=== PATIENT | male | born 1965 | race Two or more races ===

== ENCOUNTER 2025-07-06 06:27 | Day surgery (SDC) | payer BC ==
[~2025-07-06] VITALS: Ht 170.2 cm; Wt 114.0 kg
[~2025-07-06 06:27] MED LIST: FLUTICASONE-SA1 EAC4 INH; LACTATED RINGER'S 1,000 ML IV SCH; METFORMIN HCL1000 M1 PO; Ropivacaine HCl 20 MG/10 ML AMP ONE; SAXAGLIPTIN HCL5 MG PO; VENTOLIN HFA18 GM INH
[2025-07-06] MEDS ORDERED: GABAPENTIN 600 MG TAB PO SCH (07:00)
[2025-07-06] MEDS ORDERED: IBLOOD GLUCOSE TEST STRIP 1 EA TEST VI PRN ×2 (07:00→10:15)
[2025-07-06] MEDS ORDERED: PANTOPRAZOLE SODIUM 40 MG TABEC PO SCH (07:00)
[2025-07-06] MEDS ORDERED: CEFAZOLIN SODIUM 2 GM in SODIUM CHLORIDE 0.9% 100 ML IV SCH ×2 (07:00→17:00)
[2025-07-06] MEDS ORDERED: OXYCODONE HCL 5 MG TAB PO SCH (07:00)
[2025-07-06] MEDS ORDERED: INTRA-ARTICULAR ANALGESIC INJECTION XX SCH (07:00)
[2025-07-06] MEDS ORDERED: TRANEXAMIC ACID IN NACL,ISO-OS 1,000 MG/100 ML PIGGYBACK IV SCH ×2 (07:00→11:00)
[2025-07-06] MEDS ORDERED: LIDOCAINE HCL 1% 5 ML SDV INJ ONE (07:00)
[2025-07-06] MEDS ORDERED: ROPIVACAINE IN 0.9% SOD CHL/PF 545 ML ELS.PMP.HR IRRIGATION SCH (07:00)
[2025-07-06 07:03] VITALS: BP 127/65
[2025-07-06] MEDS ORDERED: Ropivacaine HCl 0.5% 30 ML VIAL ONE (07:16)
[2025-07-06] MEDS ORDERED: DEXAMETHASONE SOD PHOS 4 MG/ML VIAL ONE (07:16)
[2025-07-06] MEDS ORDERED: MIDAZOLAM HCL 2 MG/2 ML VIAL ONE (07:16)
[2025-07-06] MEDS ORDERED: SODIUM CHLORIDE 0.9% 20 ML IV ONE (07:16)
[2025-07-06] MEDS ORDERED: LIDOCAINE HCL 2% 5 ML SDV ONE ×2 (07:17→09:23)
[2025-07-06] MEDS ORDERED: ALBUTEROL/IPRATROPIUM 3 ML NEB ONE (08:27)
[2025-07-06] MEDS ORDERED: ALBUTEROL/IPRATROPIUM 3 ML NEB INH ONE (08:30)
[2025-07-06] MEDS ORDERED: OXYCODONE HCL 5 MG TAB PO PRN (09:15)
[2025-07-06] MEDS ORDERED: KETOROLAC TROMETHAMINE 30 MG/ML VIAL IV PRN (09:15)
[2025-07-06] MEDS ORDERED: fentaNYL citrate 100 MCG/2 ML VIAL ONE (09:47)
[2025-07-06] MEDS ORDERED: PHENYLEPHRINE HCL IN 0.9% NACL 1 MG/10 ML SYR ONE (09:54)
[2025-07-06] MEDS ORDERED: GLYCOPYRROLATE 1 MG/5 ML MDV ONE (09:54)
[2025-07-06] MEDS ORDERED: TRANEXAMIC ACID 1,000 MG/10 ML AMP ONE (09:57)
[2025-07-06] MEDS ORDERED: NALOXONE HCL 0.4 MG SYR IV PRN (10:15)
[2025-07-06] MEDS ORDERED: fentaNYL citrate 50 MCG/ML SDV IV PRN (10:15)
[2025-07-06] MEDS ORDERED: HYDROmorphone HCL 1 MG/ML SYR IV PRN (10:15)
[2025-07-06] MEDS ORDERED: ACETAMINOPHEN 1,000 MG/100 ML VIAL ONE (10:29)
[2025-07-06] MEDS ORDERED: KETOROLAC TROMETHAMINE 30 MG/ML VIAL ONE (11:16)
[2025-07-06] MEDS ORDERED: ASPIRIN325 MG PO (11:23)
[2025-07-06] MEDS ORDERED: GABAPENTIN300 MG PO (11:23)
[2025-07-06] MEDS ORDERED: DICLOFENAC SODI75 MG PO (11:23)
[2025-07-06] MEDS ORDERED: SENNA LAX8.6 MG PO (11:23)
[2025-07-06] MEDS ORDERED: OXYCODONE HCL5 M1 PO (11:23)
[2025-07-06] MEDS ORDERED: CEFUROXIME250 MG PO (11:23)
[2025-07-06] MEDS ORDERED: ACETAMINOPHEN500 MG PO (11:23)
[2025-07-06 12:08] VITALS: BP 118/74
--- NOTE | 2025-07-06 12:18 | NUR ---
1200- PT RETURNS TO ROOM4 FROM PACU. PT FAMILY IS AT BEDSIDE. BEDSIDE REPORT RECIEVED FROM AILEEN DEMPSEY. PT REPORTS PAIN IS A 2/10 AND NO NAUSEA. SURGICAL SITE ASSESSED WITH SOME RED DRAINAGE NOTED. PT IS SIPPING ON COFFEE AND EATING AN APPLE SAUCE. CALL LIGHT IN REACH. LR INFUSING. BED IS LOCKED IN THE LOWEST POSITON. CRITERIA DISCUSSED AND PT IS UNDERSTANDING.
--- NOTE | 2025-07-06 12:53 | OR ---
[facility] [address], [place] [address] Signed DATE OF OPERATION: 07/06/2025 SURGEON: Krissy Palomino MD PREOPERATIVE DIAGNOSIS: Severe degenerative joint disease, left knee. POSTOPERATIVE DIAGNOSIS: Severe degenerative joint disease, left knee. PROCEDURE PERFORMED: Left total knee arthroplasty with Aamir. JOURNEYMAN MEAT CUTTER: None. ANESTHESIA: Spinal. BLOOD LOSS: 175 mL. IMPLANTS: Odin Triathlon size 6 femur, 5 tibia, 10 mm polyethylene and a 38 mm patella. BRIEF HISTORY: Cecilia is a 60-year-old gentleman with progressive worsening of osteoarthritis that failed nonoperative treatment. Risks and benefits of operative treatment were discussed with him and he elected to proceed. DESCRIPTION OF PROCEDURE: Once consent was obtained, he was taken to the operating room. After adequate anesthesia he was placed on the operating room table. A hip bump was placed. The leg was prepped and draped in a standard sterile fashion. The knee was approached through a standard anterior midline incision, carried through skin, subcutaneous tissue and skin flaps were developed medially and laterally. A low mid vastus arthrotomy was performed. The infrapatellar fat pad was excised. The MCL was elevated as a sleeve around the posteromedial corner. Anterior horns of the menisci were transected. The ACL was transected. PCL was found to be intact. The navigation computer arrays were then placed in the distal femur and proximal tibia. The leg was then registered with the Electronically Signed By: KRISSY PALOMINO MD 07/06/25 1253 PATIENT NAME: CECILIA MAHONEY OPERATIVE REPORT DATE OF : 65 REPORT #: [id number] PHYSICIAN: KRISSY PALOMINO MD PCP: NO PRIMARY CARE PHYSICIAN REPORT IS CONFIDENTIAL AND NOT TO BE RELEASED WITHOUT AUTHORIZATION [facility] [address], [place] [address] Signed computer followed by the fine anatomic points of the knee. The varus and valgus poses were undertaken and slight adjustments were made to the position of the prosthesis. The distal femoral cut was then made. The posterior cuts were made. Next, however, the machine stopped working with only one of the posterior cuts made. The machine was rebooted and still did not work. All of the rescue techniques were unable to get it to work. We then switched to manual instrumentation. The four-in-one block was then placed on the distal femur and aligned with the anterior cortex of the femur. The anterior, posterior, and chamfer cuts were then made. The bone was removed as were any remaining osteophytes. The extramedullary guide was then aligned for the tibia and set to take 5 mm off the most involved medial position. The guide was aligned with the anterior ridge of the tibia. The tibial cut was then made with care taken to protect the patellar tendon and MCL. The bone was then removed as were any osteophytes and meniscus that remained. Posterior osteophytes removed off the femur. No posterior release was performed. The trials were then positioned. Knee was taken from 0 to 100 degrees. It was a little bit loose with a 9, but a 10 mm polyethylene fit well. The patella was then cut, sized and drilled for a 38 patella. The distal femoral drill holes were completed. The proximal tibia was completed using the keel punch and the drill holes. The prosthesis was obtained. The tibia was impacted into position first followed by the polyethylene. The femur was impacted until it was well-seated and the knee was extended and loaded. The patella was clamped into position again until it was well-seated on the bone. The patellar tracking was then once again checked and found to be adequate. The knee was then thoroughly washed out and irrigated with one bottle of Surgiphor followed by normal saline. The periarticular soft tissues were injected with 100 mL ropivacaine Toradol mixture. The On-Q pain pump was percutaneously placed into the adductor canal from the suprapatellar pouch. The arthrotomy was then closed using combination of #2 FiberWire, #2 Stratafix, subcutaneous tissue with 0 Stratafix and skin with nesha. Wound was then dressed with Acticoat-7 dressing, ABDs and ADRYAN wrap. He tolerated the procedure well. All sponge, needle, and instrument counts were correct. Krissy Palomino MD BA/MODL /[id number] Electronically Signed By: KRISSY PALOMINO MD 07/06/25 1253 PATIENT NAME: CECILIA MAHONEY OPERATIVE REPORT DATE OF : 65 REPORT #: [id number] PHYSICIAN: KRISSY PALOMINO MD PCP: NO PRIMARY CARE PHYSICIAN REPORT IS CONFIDENTIAL AND NOT TO BE RELEASED WITHOUT AUTHORIZATION [address] [address] Signed Copies: ~ Electronically Signed By: KRISSY PALOMINO MD 07/06/25 1253 PATIENT NAME: CECILIA MAHONEY OPERATIVE REPORT DATE OF : 65 REPORT #: [id number] PHYSICIAN: KRISSY PALOMINO MD PCP: NO PRIMARY CARE PHYSICIAN REPORT IS CONFIDENTIAL AND NOT TO BE RELEASED WITHOUT AUTHORIZATION
[2025-07-06 13:01] VITALS: BP 124/68
--- NOTE | 2025-07-06 13:09 | NUR ---
1300- PT IS RESTING IN BED. PT REPORTS THAT PAIN IS THE SAME AFTER PAIN MEDICATION WAS PROVIDED EARLIER AND IS AT A 4/10 PAIN. PT DENIES NAUSEA. LR INFUSING. SURGICAL SITE SHOWS SOME MORE DRAINAGE. TXA STARTED. VITAL SIGNS OBTAINED. SPINAL IS RESOLVED AT THIS TIME. 1310- PHYSICAL THERAPY IN THE ROOM WITH PT.
[2025-07-06 14:13] VITALS: BP 107/64
--- NOTE | 2025-07-06 14:20 | NUR ---
1415- PT IS RESTING IN BED TALKING WITH HIS FAMILY. PT IS LR LOCKED AT THIS TIME. PT DENIES NAUSEA BUT REPORTS 4/10 PAIN. SURGICAL SITE SHOWS SOME RED DRAINAGE AROUND THE PUMP. PT DENIES NUMBNESS AND TINGLING IN HIS FEEL. VIAL SIGNS OBTAINED.
--- NOTE | 2025-07-06 14:32 | NUR ---
07/06/25 1432 Clair Cat 1117- PT ARRIVES TO PACU, SEMI YOUNG POSITION, NON REACTIVE TO STIMULUS. OPA IN PLACE, BREATHING EVEN AND NON LABORED, O2 AT 6L PER MASK. ABD ROUND, SOFT, NON DISTENDED. DRESSING TO LEFT KNEE, CDI. PULSES INTACT TO LEFT FOOT. LR INFUSING TO RW IV. ALL MONITORS IN PLACE. ON Q PUMP AT 4ML/HR, HEELS FLOATED OFF BED. 1123- PT WAKES ON OWN, LOOKING AROUND. OPA REMOVED, MOVED TO ROOM AIR AT THIS TIME. PT HAS HARSH PRODUCTIVE COUGH. 1127- PT UPPER AND LOWER DENTURES PLACED BACK IN MOUTH, PT STATES "I TALK BETTER WITH MY TEETH IN". 1130- PT DENIES PAIN OR NAUSEA. XRAY AT BEDSIDE FOR LEFT KNEE, PT TOLERATED WELL. CONVERSING AND JOKING WITH STAFF. 1140- CRYO CUFF IN PLACE. 1150- PT O2 SATS STAYING AROUND 88-91% ON ROOM AIR. PT COUGHS AND DEEP BREATHS. O2 AT 2L PER NC PLACED ON PT AT THIS TIME, PLAN TO RETURN TO DAY SURGERY. 1200- PT TAKEN BACK TO DAY SURGERY, FAMILY AT BEDSIDE. REPORT TO PARMINDER GALLAGHER AT BEDSIDE, CARE OF PT TURNED OVER AT THIS TIME.
[2025-07-06] MEDS ORDERED: ACETAMINOPHEN 500 MG TAB PO SCH (15:00)
[2025-07-06] MEDS ORDERED: GABAPENTIN 300 MG CAP PO SCH (15:00)
--- NOTE | 2025-07-06 15:20 | NUR ---
1500- PT IS WORKING WITH PHYSICAL THERAPY OFF THE DAY SURGERY UNIT AT THIS TIME. VITALS ON RETURN.
[2025-07-06 16:09] VITALS: BP 108/56
--- NOTE | 2025-07-06 16:12 | NUR ---
1612- PT IS RESTING IN BED. VITAL SIGNS OBATINED. PT IS TO HAVE DRESSING REDONE PER DR. NOVAK. PT REPORTS 4/10 PAIN THAT IS BETTER AFTER RESTING FROM PHYSCIAL THERAPY. ANTIBIOTIC IS INFUSING.
--- NOTE | 2025-07-06 17:16 | NUR ---
1630- DISCHARGE PAPERWORK AND EDUCATION GONE OVER. ALL QUESTIONS AND CONCERNS ANSWERED. AND DAUGHTER AT BEDSIDE DURING DISCUSSION. 1645- NEW DRESSING APPLIED WITH ASSISTANCE FROM AILEEN GARSIA PER DR. NOVAK ORDERS. 1700-PT IS DRESSED WITH THE ASSISTANCE FROM THE RN AND . PT DAUGHTER IS PULLING UP THE FAMILY VEHICLE. PT HAS ALL BELONGINGS. PT IS ABLE TO TRANSFER FROM BED TO HOSPITAL WHEELCHAIR USING FRONT WHEELED WALKER APPROPRIATELY. PT DC'S FROM DAY SURGERY.
[2025-07-06] MEDS ORDERED: ASPIRIN 325 MG TAB PO SCH (21:00)
[2025-07-06] MEDS ORDERED: SENNOSIDES 1 TAB PO SCH (21:00)
[2025-07-07] MEDS ORDERED: DICLOFENAC SOD 75 MG TABEC PO SCH (08:00)
== END 2025-07-06 17:00 | disposition home or self-care (01) ==
LOC: DS 06:27
PROVIDERS: ATTEND Specialist
PROC: 0SRD0JZ Replacement of Left Knee Joint with Synthetic Substitute, Open Approach (ICD-10-PCS; principal; 2025-07-06 09:25)
DX: M17.0 Bilateral primary osteoarthritis of knee (principal); E11.9 Type 2 diabetes mellitus without complications; Z79.84 Long term (current) use of oral hypoglycemic drugs
CPT/HCPCS: 01402; 64447; 64450; 64454; 73560; 76942; 94640; 97110; 97116; 97161; 97530; A9270; C1713; C1776; J0131; J0165; J0688; J1100; J1885; J2003; J2250; J2405; J2704; J2795; J3010; J7121

== ENCOUNTER 2025-07-21 10:03 | Emergency (ER) | payer BC ==
[~2025-07-21] VITALS: Ht 170.2 cm; Wt 113.5 kg
[~2025-07-21 10:03] MED LIST changes: +ACETAMINOPHEN500 MG PO; +ASPIRIN325 MG PO; +CEFUROXIME250 MG PO; +DICLOFENAC SODI75 MG PO; +GABAPENTIN300 MG PO; -LACTATED RINGER'S 1,000 ML IV SCH; +OXYCODONE HCL5 M1 PO; -Ropivacaine HCl 20 MG/10 ML AMP ONE; +SENNA LAX8.6 MG PO
[2025-07-21 12:47] VITALS: BP 113/57
== END 2025-07-21 12:48 | disposition home or self-care (01) ==
LOC: ED 10:03
DX: M25.562 Pain in left knee (principal); E11.9 Type 2 diabetes mellitus without complications; Z96.652 Presence of left artificial knee joint; Z79.82 Long term (current) use of aspirin; Z79.84 Long term (current) use of oral hypoglycemic drugs; Z79.899 Other long term (current) drug therapy
CPT/HCPCS: 73560; 93971; 99284-25